=== PATIENT | female | born 1990 | race Two or more races ===

== ENCOUNTER 2023-02-25 05:22 | Inpatient (IN) | payer MEDICAID, OTHER ==
[~2023-02-25] VITALS: Ht 170.2 cm; Wt 78.5 kg
[2023-02-25] MEDS ORDERED: PROMETHAZINE HCL 25 MG/ML 1ML IV PRN (07:15)
[2023-02-25] MEDS ORDERED: PHISODERM TOP SOLN 240ML BTL TOP PRN (07:15)
[2023-02-25] MEDS ORDERED: LIDOCAINE 2%HCL (LOCAL ANESTH.) INJ 20ML MDV IJ PRN (07:15)
[2023-02-25] MEDS ORDERED: LACTATED RINGER'S 1,000 ML IV SCH (07:15)
[2023-02-25] MEDS ORDERED: WITCH HAZEL-GLYCERIN PAD TOP PRN (07:15)
[2023-02-25] MEDS ORDERED: PENICILLIN G POT 5MIL/D5 50ML 50 ML IV ONE ×2 (07:15→07:28)
[2023-02-25] MEDS ORDERED: BUTORPHANOL TARTRATE 2 MG/1 ML VIAL IV PRN ×2 (07:15)
[2023-02-25] MEDS ORDERED: DERMOPLAST 60ML BOTTLE TOP PRN (07:15)
[2023-02-25] MEDS ORDERED: miSOPROStol 100 mcg TAB PR PRN (07:30)
[2023-02-25] MEDS ORDERED: TRANEXAMIC ACID 1,000 MG in SODIUM CHL 0.9% 100 ML IV ONE (07:30)
[2023-02-25] MEDS ORDERED: LACT. RINGERS/OXYTOCIN 20UNITS 500 ML IV ONE ×2 (07:30→08:00)
[2023-02-25] MEDS ORDERED: CARBOPROST TROMETHAMINE 250 MCG/1ML VIAL IM PRN (07:30)
[2023-02-25] MEDS ORDERED: miSOPROStol 100 mcg TAB SL PRN (07:30)
[2023-02-25] MEDS ORDERED: METHYLERGONOVINE MALEATE 0.2 MG/ML AMP IM PRN (07:30)
[2023-02-25] MEDS ORDERED: METHYLERGONOVINE MALEATE 0.2 MG/ML AMP IM ONE (07:42)
[2023-02-25] MEDS ORDERED: BETAMETHASONE ACET (30mg/5ml) 5ml Vial 6mg/ml ONE (07:42)
[2023-02-25] MEDS ORDERED: LACT. RINGERS/OXYTOCIN 20UNITS 1,000 ML IV ONE (07:42)
[2023-02-25] MEDS ORDERED: BETAMETHASONE ACET (30mg/5ml) 5ml Vial 6mg/ml IM ONE (07:45)
[2023-02-25 08:06] LABS: Basophils # (auto) 0 10 ^3/uL (0-0.2); Basophils % (auto) 0.3 % (0.0-2.0); Eosinophils # (auto) 0.1 10 ^3/uL (0-0.8); Eosinophils % (auto) 0.8 % (0.0-7.0); Hematocrit 32.2 % (36.0-46.0); Hemoglobin 10.5 g/dL (12.2-16.2); Lymphocytes # (auto) 1.5 10 ^3/uL (0.4-5.4); Lymphocytes % (auto) 12.1 % (10.0-50.0); Mean Corpuscular Hgb Conc. 32.6 g/dL (32.0-36.0); Monocytes # (auto) 0.8 10 ^3/uL (0-1.3); Monocytes % (auto) 6.6 % (0.0-12.0); Neutrophils # (auto) 9.9 10 ^3/uL (1.6-8.6); Neutrophils % (auto) 80.2 % (37.0-80.0); Nucleated Red Blood Cells % 0.1 %; Red Blood Cells 3.74 10^6/uL (4.0-5.20); White Blood Cell 12.4 10^3/uL (4.4-10.8)
[2023-02-25 08:15] LABS: INR 0.94 (0.9-1.15); Partial Thromboplastin Time 25.1 SEC (24.5-34.5); Prothrombin Time 9.9 sec (9.3-11.8)
[2023-02-25 08:23] LABS: Amphetamine Screen, Urine Pos (NEGATIVE); Barbiturate Scree,Urine Neg (NEGATIVE); Benzodiazephine Screen, Urine Neg (NEGATIVE)
[2023-02-25 08:24] LABS: Cannabinoid Screen, Urine Neg (NEGATIVE); Cocaine Screen, Urine Neg (NEGATIVE); Opiate Scree,Urine Neg (NEGATIVE); Phencyclidine Screen, Urine Neg (NEGATIVE)
[2023-02-25 08:25] LABS: Urine Bacteria NONE SEEN /hpf (None Seen); Urine Blood 3+ /uL (Negative); Urine Clarity Clear (Clear); Urine Color Colorless (Yellow); Urine Protein, UAD TRACE (Negative); Urine Specific Gravity 1.012 (1.001-1.035); Urine Urobilinogen Normal (Negative); Urine WBC 16 /hpf (0 - 5); Urine pH 7.5 (5.0-8.0)
[2023-02-25 08:26] LABS: Alanine Aminotransferase 22 U/L (7-40); Albumin 3.4 g/dL (3.2-4.8); Alkaline Phosphatase 155 U/L (46-116); Anion Gap 5 (5-15); Aspartate Aminotransferase 29 U/L (13-40); BUN/Creatinine Ratio 12.5 (10.0-20.0); Blood Urea Nitrogen 7 mg/dL (9-23); Calcium 8.4 mg/dL (8.5-10.1); Carbon Dioxide 26 mmol/L (20-30); Chloride 104 mmol/L (98-107); Glucose 69 mg/dL (74-106); Potassium 4.2 mmol/L (3.5-5.1); Sodium 135 mmol/L (136-145)
[2023-02-25 08:27] LABS: Bilirubin, Total 0.3 mg/dL (0.2-1.0)
[2023-02-25] MEDS ORDERED: DIPHENOXYLATE W/ATROPINE 2.5 MG TAB PO PRN (09:30)
[2023-02-25] MEDS ORDERED: ACETAMINOPHEN 325 MG TAB PO PRN (09:30)
[2023-02-25] MEDS ORDERED: ONDANSETRON ODT 4 MG TAB PO PRN (09:30)
[2023-02-25] MEDS ORDERED: ONDANSETRON HCL 4 MG/2 ML VIAL IV PRN (09:30)
[2023-02-25] MEDS: IBUPROFEN 800 MG TAB PO SCH ×2 (09:36→18:38)
[2023-02-25] MEDS ORDERED: DIPHENOXYLATE W/ATROPINE 2.5 MG TAB PO SCH (10:00)
[2023-02-25] MEDS: DOCUSATE CALCIUM 240 MG CAP PO SCH (10:00)
[2023-02-25 15:00] VITALS: BP 133/75; PULSE 92; RESP 17; TEMP 98.6; O2SAT 97
[2023-02-25 18:40] VITALS: BP 134/74; PULSE 70; RESP 18; TEMP 99; O2SAT 100
[2023-02-25 22:00] VITALS: BP 120/69; PULSE 62; RESP 18; TEMP 98.6; O2SAT 98
[2023-02-25] MEDS ORDERED: DOCUSATE SOD 100 MG CAP PO SCH (22:00)
[2023-02-26] MEDS: IBUPROFEN 800 MG TAB PO SCH ×2 (00:07→05:47)
[2023-02-26 04:00] VITALS: BP 105/57; PULSE 68; RESP 18; TEMP 99.3; O2SAT 97
[2023-02-26 07:05] VITALS: BP 90/52; PULSE 77; RESP 16; TEMP 99; O2SAT 98
[2023-02-26] MEDS: DOCUSATE CALCIUM 240 MG CAP PO SCH (10:00)
[2023-02-26] MEDS ORDERED: IBUPROFEN 800 MG TAB PO PRN (10:15)
[2023-02-26] MEDS ORDERED: IBUP-1455 PO (10:26)
[2023-02-26 10:50] VITALS: BP 123/86; PULSE 72; RESP 18; TEMP 98.6; O2SAT 100
[2023-02-26] MEDS ORDERED: FERR30CA PO (12:58)
[2023-02-27 10:06] LABS: RPR Quant 1:16 titer (NonRea<1:1)
[2023-03-01 19:06] LABS: Treponema pallidum Ab (FTA-Ab) Reactive (Non Reactive)
== END 2023-02-26 12:16 | disposition home or self-care (01) | DRG 560 ==
LOC: LDRP 05:22 → OBSVTOIN 07:11 → LDRP 07:40
PROVIDERS: ADMIT Obstetrics & Gynecology; ATTEND Obstetrics & Gynecology
PROC: 10E0XZZ Delivery of Products of Conception, External Approach (ICD-10-PCS; principal; 2023-02-25)
PROC: 0KQM0ZZ Repair Perineum Muscle, Open Approach (ICD-10-PCS; 2023-02-25)
DX: O60.14X0 Preterm labor third trimester with preterm delivery third trimester, not applicable or unspecified (principal); Z37.0 Single live birth; O99.324 Drug use complicating childbirth; F15.90 Other stimulant use, unspecified, uncomplicated; O69.81X0 Labor and delivery complicated by cord around neck, without compression, not applicable or unspecified; O70.1 Second degree perineal laceration during delivery; Z3A.34 34 weeks gestation of pregnancy; O90.81 Anemia of the puerperium; D64.9 Anemia, unspecified
CPT/HCPCS: 36415; 59025; 59409; 76805; 80053; 80307; 81001; 81002; 85025; 85610; 85730; 86592; 86703; 86762; 86850; 86900; 86901; 87340; 94760; 96360; 96365; 96366; G0378; J2540; J2590